=== PATIENT | female | born 1995 | race Caucasian/White ===

== ENCOUNTER 2020-04-23 01:15 | Emergency (ER) | payer SELFPAY ==
[~2020-04-23] VITALS: Ht 149.9 cm; Wt 43.1 kg
--- NOTE | 2020-04-23 01:35 | Emergency Room Report ---
History of Present Illness General Chief Complaint: Chest Pain Source: Patient Present Illness [facility] This a 25-year-old female with no past medical history. She presents with chief complaint of chest tightness and shortness of breath. Onset tonight. She says she is feeling down for the 1 day. Has some slight congestion. Some fatigue. Denies any fever chills. No sick contact. No cough. No exertional component. No diaphoresis. Not on control pill. 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 Patient History Past Medical History: see triage record, old chart reviewed Past Surgical History: none Pertinent Family History: none Social History: Denies: smoking Last Menstrual Period: 04/2020 Now: No Immunizations: other Reviewed Nursing Documentation: PMH: Agreed; PSxH: Agreed Nursing Documentation-PMH Past Medical History: No Stated History Review of Systems Constitutional: Reports: malaise Eye: Denies: eye pain, blurred vision ENT: Denies: ear pain, nose congestion, throat swelling Respiratory: Reports: shortness of breath; Denies: cough Cardiovascular: Reports: chest pain; Denies: palpitations Gastrointestinal: Denies: abdominal pain, diarrhea, nausea, vomiting Musculoskeletal: Denies: back pain, joint pain Skin: Denies: rash Neurological: Denies: headache, numbness Endocrine: Denies: increased thirst, increased urine Hematologic/Lymphatic: Denies: easy bruising All Other Systems: negative except mentioned in HPI Physical Exam Vital Signs Date Time Temp Pulse Resp B/P (MAP) Pulse Ox O2 Delivery O2 Flow Rate FiO2 04/23/20 01:23 98.8 82 14 113/78 (90) 96 Room Air Vitals normal Sp02 EP Interpretation: reviewed, normal General Appearance: well appearing, no apparent distress, alert Head: normocephalic, atraumatic Eyes: bilateral eye PERRL, bilateral eye EOMI ENT: hearing grossly normal, normal pharynx Neck: full range of motion, supple, no meningismus Respiratory: chest non-tender, lungs clear, normal breath sounds Cardiovascular #1: regular rate, rhythm, no murmur Gastrointestinal: normal bowel sounds, non tender, no mass, no organomegaly, no bruit, non-distended Musculoskeletal: back normal, normal range of motion, gait/station normal Psychiatric: mood/affect normal Medical Decision Making Diagnostic Impression: Primary Impression: Chest pain Qualified Codes: R07.9 - Chest pain, unspecified Additional Impression: UTI (urinary tract infection) Qualified Codes: N30.00 - Acute cystitis without hematuria ER Course This patient presents with atypical chest pain and shortness of breath. Chest x-ray is normal. EKG normal. Troponin 0. She does have urinary tract infection. Rocephin given here. Will discharge home. EKG Diagnostic Results Troponin ordered: Yes Rate: normal Rhythm: NSR ST Segments: no acute changes Rhythm Strip Diag. Results EP Interpretation: yes Rate: 63 Rhythm: NSR, no PVC's, no ectopy Chest X-Ray Diagnostic Results Chest X-Ray Diagnostic Results : Chest X-Ray Ordered: Yes # of Views/Limited/Complete: 1 View Indication: Chest Pain EP Interpretation: Yes Interpretation: no consolidation, no effusion, no pneumothorax, no acute cardiopulmonary disease Impression: No acute disease Electronically Signed by: Jose Gregg MD Last Vital Signs Date Time Temp Pulse Resp B/P (MAP) Pulse Ox O2 Delivery O2 Flow Rate FiO2 04/23/20 01:23 98.8 82 14 113/78 (90) 96 Room Air Status: improved Disposition: HOME, SELF-CARE Condition: Stable Scripts Nitrofurantoin Monohyd/M-Cryst (Nitrofurantoin Reeves-Mcr 100 mg) 100 Mg Capsule 100 MG ORAL Q12H, #14 CAP Prov: Jose Gregg MD 04/23/20 Patient Instructions: Nonspecific Chest Pain Additional Instructions: Follow-up with your DrTad In 7 days. Return if symptoms worsen. Jose Gregg MD Apr 23, 2020 01:35
[2020-04-23] MEDS ORDERED: Ketorolac 30mg Inj IV ONE (01:45)
[2020-04-23 02:00] VITALS: BP 113/78
--- NOTE | 2020-04-23 02:00 | NUR ---
ED Nurse Note: Pt ambulated to ED from home c/o sudden chest pressure at rest, denies trauma. Pt denies N/V. Pt is A&OX4, VSS. PT placed on enterprise application administrator. EKG done, ERMD at bedside
[2020-04-23 02:03] LABS: APPEARANCE,URINE CLEAR; BILIRUBIN, URINE NEGATIVE (NEGATIVE); COLOR,URINE PALE YELLOW; GLUCOSE, URINE (UA) NEGATIVE (NEGATIVE); KETONES,URINE NEGATIVE (NEGATIVE); LEUKOCYTE ESTERASE ,URINE 1+ (NEGATIVE); NITRITE,URINE NEGATIVE (NEGATIVE); PH,URINE 8 (4.5-8.0); PROTEIN,URINE NEGATIVE (NEGATIVE); UROBILINOGEN,URINE NORMAL MG/DL (0.0-1.0)
[2020-04-23] MEDS ORDERED: cefTRIAXone 1 GM in NS 55 ML IVPB ONE (02:30)
--- NOTE | 2020-04-23 02:44 | Diagnostic Imaging Report ---
EXAM: XR Chest, 1 View CLINICAL HISTORY: CP TECHNIQUE: Frontal view of the chest. COMPARISON: No relevant prior studies available. FINDINGS: Lungs: Unremarkable. No consolidation. Pleural space: Unremarkable. No pneumothorax. Heart: Unremarkable. No cardiomegaly. Mediastinum: Unremarkable. Bones/joints: No acute abnormality IMPRESSION: Unremarkable chest.
[2020-04-23] MEDS ORDERED: MACROBID100 MG ORAL (02:52)
[2020-04-23 03:00] VITALS: BP 121/70
--- NOTE | 2020-04-23 03:00 | NUR ---
ER DISCHARGE NOTE: Patient is cleared to be discharged per ERMD, pt is aox4, on room air, with stable vital signs. pt was given dc and prescription instructions, pt was able to verbalize understanding, pt id band and iv site removed without complications. pt is able to ambulate with steady gait. pt took all belongings.
== END 2020-04-23 03:00 | disposition home or self-care (01) ==
LOC: EMR 01:34
DX: R07.89 Other chest pain (principal); N30.00 Acute cystitis without hematuria; R06.02 Shortness of breath; R53.83 Other fatigue; Z88.2 Allergy status to sulfonamides; Z88.0 Allergy status to penicillin
CPT/HCPCS: 36415; 71045; 81001; 81025; 84484; 87086; 93005; 96361; 96365; 96375; 99284; J0696; J1885; J7030